=== PATIENT | female | born 1995 | race Two or more races ===

== ENCOUNTER 2022-07-21 19:11 | Emergency (ER) | payer OTHER ==
[~2022-07-21] VITALS: Ht 152.4 cm; Wt 63.5 kg
[2022-07-21] MEDS ORDERED: ALDACTAZIDE 501 EACH PO (19:52)
[2022-07-21] MEDS ORDERED: ADULT LOW DOSE81 M1 PO (19:52)
[2022-07-21] MEDS ORDERED: METFORMIN HCL500 M3 PO (19:52)
== END 2022-07-21 23:56 | disposition home or self-care (01) ==
LOC: ER 19:11
DX: R42 Dizziness and giddiness (principal); E63.9 Nutritional deficiency, unspecified; Z20.822 Contact with and (suspected) exposure to COVID-19